=== PATIENT | female | born 1960 | race Two or more races ===

== ENCOUNTER 2023-05-08 09:46 | Emergency (ER) | payer MEDICAID ==
[~2023-05-08] VITALS: Ht 144.8 cm; Wt 64.6 kg
[2023-05-08] MEDS ORDERED: PRED20TA PO (18:08)
[2023-05-08] MEDS ORDERED: predniSONE 20 mg tablet PO ONE (18:10)
[2023-05-08 18:12] VITALS: BP 134/78; PULSE 93; RESP 16; O2SAT 95
[2023-05-08 18:43] VITALS: TEMP 98.3
== END 2023-05-08 18:47 | disposition home or self-care (01) ==
LOC: ER 09:46
DX: G51.0 Bell's palsy (principal); Z79.899 Other long term (current) drug therapy
CPT/HCPCS: 99283; J7030; J7512